=== PATIENT | male | born 1980 | race American Indian/Alaskan Native ===

== ENCOUNTER 2019-09-06 23:44 | Emergency (ER) | payer SELFPAY ==
[2019-09-07] MEDS ORDERED: ASPIRIN 325 MG TAB PO ONE (00:36)
[2019-09-07 01:11] LABS: Hemoglobin 15.2 gm/dl (11.8-15.2); Mean Corpuscular HGB Conc 34 % (32-34); Mean Corpuscular Volume 94 fl (84-94); Platelet Count 187 K/mm3 (140-440); Red Blood Count 4.79 M/mm3 (3.65-5.03); Red Cell Distribution Width 13.1 % (13.2-15.2)
[2019-09-07 01:26] LABS: BUN/Creatinine Ratio 20; Blood Urea Nitrogen 18 mg/dL (9-20); Calcium 9.2 mg/dL (8.4-10.2); Hemolysis Index 32
--- NOTE | 2019-09-07 01:54 | XRay Report ---
CHEST 1 VIEW INDICATION / CLINICAL INFORMATION: Chest Pain. COMPARISON: None available. FINDINGS: SUPPORT DEVICES: None. HEART / MEDIASTINUM: No significant abnormality. LUNGS / PLEURA: No significant pulmonary or pleural abnormality. No pneumothorax. ADDITIONAL FINDINGS: No significant additional findings. IMPRESSION: 1. No acute findings. Signer Name: Clayton Lopez MD Signed: 09/07/2019 1:50 AM Workstation Name: [id number]
[2019-09-07 02:05] LABS: RBC Morphology Normal; Total Cells Counted 100
[2019-09-07] MEDS ORDERED: ACETAMINOPEN W/CODEINE 120-12MG ORAL LIQD 5 ML PO STA (02:13)
[2019-09-07] MEDS ORDERED: IPRATROPIUM/ALBUTEROL SULFATE 3 ML AMPUL.NEB IH ONE (02:13)
[2019-09-07] MEDS ORDERED: predniSONE 50 MG TAB PO STA (02:13)
[2019-09-07] MEDS ORDERED: cloNIDine 0.2 MG TAB PO STA (02:32)
--- NOTE | 2019-09-07 02:47 | Emergency Department Report ---
ED General Adult HPI - General Chief complaint: Chest Pain Stated complaint: CHEST PAIN, BP Time Seen by Provider: 09/07/19 02:00 Source: patient Mode of arrival: Ambulatory Limitations: No Limitations - History of Present Illness Initial comments: 38-year-old male smoker as well as department complaining of a one-week history of episodic left-sided chest pain associated with episodes of shortness of breath and cough with no nausea vomiting, hemoptysis, hematemesis, hematochezia. He also has been having some issues with high blood pressure Radiation: non-radiation Quality: aching, dull Consistency: constant Improves with: none Worsens with: none Associated Symptoms: denies: confusion, chest pain, cough, headaches, malaise, nausea/vomiting, seizure, syncope, weakness - Related Data Previous Rx's Medication Instructions Recorded Last Taken Type ALBUTEROL Inhaler (OR & NICU) 1 puff IH Q4-6H PRN #1 inha 09/07/19 Unknown Rx [ProAir HFA Inhaler] Azithromycin [Zithromax] 500 mg PO QDAY #5 tablet 09/07/19 Unknown Rx amLODIPine 5 mg PO DAILY #20 tab 09/07/19 Unknown Rx guaiFENesin/CODEINE [Robitussin AC] 5 ml PO Q6H PRN #120 ml 09/07/19 Unknown Rx predniSONE [Deltasone] 50 mg PO QDAY #5 tab 09/07/19 Unknown Rx Allergies Allergy/AdvReac Type Severity Reaction Status Date / Time No Known Allergies Allergy Unverified 09/07/19 00:32 ED Review of Systems ROS: Stated complaint: CHEST PAIN, BP Other details as noted in HPI Comment: All other systems reviewed and negative ED Past Medical Hx - Past Medical History Previous Medical History?: No - Surgical History Past Surgical History?: No - Social History Smoking Status: Former Smoker - Medications Home Medications: Home Medications Medication Instructions Recorded Confirmed Last Taken Type ALBUTEROL Inhaler (OR & NICU) 1 puff IH Q4-6H PRN #1 inha 09/07/19 Unknown Rx [ProAir HFA Inhaler] Azithromycin [Zithromax] 500 mg PO QDAY #5 tablet 09/07/19 Unknown Rx amLODIPine 5 mg PO DAILY #20 tab 09/07/19 Unknown Rx guaiFENesin/CODEINE [Robitussin AC] 5 ml PO Q6H PRN #120 ml 09/07/19 Unknown Rx predniSONE [Deltasone] 50 mg PO QDAY #5 tab 09/07/19 Unknown Rx ED Physical Exam - General Limitations: No Limitations General appearance: alert, in no apparent distress - Head Head exam: Present: atraumatic, normocephalic - Eye Eye exam: Present: normal appearance, PERRL, EOMI Pupils: Present: normal accommodation - ENT ENT exam: Present: mucous membranes moist - Neck Neck exam: Present: normal inspection - Respiratory Respiratory exam: Present: normal lung sounds bilaterally, wheezes, rhonchi (to LLL). Absent: respiratory distress - Cardiovascular Cardiovascular Exam: Present: regular rate, normal rhythm. Absent: systolic murmur, diastolic murmur, rubs, gallop - GI/Abdominal GI/Abdominal exam: Present: soft, normal bowel sounds - Rectal Rectal exam: Present: deferred - Extremities Exam Extremities exam: Present: normal inspection - Back Exam Back exam: Present: normal inspection - Neurological Exam Neurological exam: Present: alert, oriented X3 - Psychiatric Psychiatric exam: Present: normal affect, normal mood - Skin Skin exam: Present: warm, dry, intact, normal color. Absent: rash ED Course Vital Signs 09/06/19 09/07/19 09/07/19 23:55 00:56 01:55 Temperature 98.3 F 98.3 F 97.9 F Pulse Rate 93 H 89 92 H Respiratory 18 18 14 Rate Blood Pressure 182/125 182/125 Blood Pressure 169/122 [Left] O2 Sat by Pulse 98 98 99 Oximetry ED Medical Decision Making - Lab Data Result diagrams: 09/07/19 00:59 09/07/19 00:59 - Radiology Data Radiology results: report reviewed (x-rays x-rays show an evolving infiltrate left lower lobe suspicious evolving pneumonia. X-ray was over read by nika and Dr. Celestino Peraza) - Medical Decision Making presents with shortness of breath, cough, and malaise concerning for pneumonia. Workup: CXR Defer lab work at this time given patient well appearing with stable vital signs and without recent hospitalization or care facility stay Given History, Exam, and Workup presentation most consistent with pneumonia.Presentation not consistent with PE, COPD exacerbation, Pneumothorax, TB, Atypical ACS, Esophageal Rupture, Toxic Exposure, Foreign Body Airway Obstruction. Findings: Single Focus Consolidation on CXR Rx: Zithromax Disposition: Discharge home. Return precautions discussed at bedside and patient in agreement with plan. Prompt follow up with primary care provider advised. Critical care attestation.: If time is entered above; I have spent that time in minutes in the direct care of this critically ill patient, excluding procedure time. ED Disposition Clinical Impression: Chest pain, HTN (hypertension), Pneumonia Disposition: TO HOME OR SELFCARE Is pt being admited?: No Does the pt Need Aspirin: No Condition: Stable Instructions: Chest Pain (ED), Hypertension (ED), Bacterial Pneumonia (ED) Additional Instructions: Pneumonia is a lung infection that can cause a fever, cough, and trouble breathing. Please continue all antibiotics as directed until complete. Nutrition is important - eat small frequent meals. Get lots of rest and drink fluids. Call your Primary Care Doctor upon arrival home from the hospital and make a follow-up appointment in two days. If your cough worsens, you develop a fever greater than 101, you develop shaking chills, a fast heartbeat, trouble breathing and/or feel you are are breathing much faster than usual, call your Primary Care Doctor or return to the ED. Make sure you wash your hands frequently. Referrals: [facility] [Provider Group] - 3-5 Days
[2019-09-07] MEDS ORDERED: HYDROcodone/ACETAMINOPHEN 5-325 MG TAB PO ONE (04:07)
[2019-09-07 04:17] VITALS: BP 158/109
== END 2019-09-07 04:17 | disposition home or self-care (01) ==
LOC: ED 23:44
DX: J18.9 Pneumonia, unspecified organism (principal); I10 Essential (primary) hypertension; Z79.899 Other long term (current) drug therapy
CPT/HCPCS: 36415; 71045; 80048; 84484; 85007; 85025; 93005; 93010; 94640; 99284; J7512; 94644

== ENCOUNTER 2020-07-11 19:50 | Emergency (ER) | payer OTHER ==
[2020-07-11 20:19] VITALS: BP 147/96
--- NOTE | 2020-07-11 22:49 | Emergency Department Report ---
ED Upper Extremity Inj HPI - General Chief Complaint: Extremity Injury, Upper Stated Complaint: LEFT RING FINGER PAIN Time Seen by Provider: 07/11/20 22:34 Source: patient Mode of arrival: Ambulatory Limitations: No Limitations - History of Present Illness Initial Comments: 39-year-old male presents to ED with complaint of left hand pain. Patient state s he was working and accidentally hit his hand against the nail. Patient reports mild puncture from the nail in the knuckle of the ring finger. Patient states pain is now radiating down into the left ring finger. States he is able to flex, however extension is painful. Patient reports having a tetanus shot is up-to-date. MD Complaint: Injury to:: left, hand -: This evening Other Injuries: none Place: work Improves With: immobilization Worsens With: movement of extremity Context: direct blow, other Associated Symptoms: denies other symptoms - Related Data Previous Rx's Medication Instructions Recorded Last Taken Type Albuterol Mdi (or & Nicu Only) 1 puff IH Q4-6H PRN #1 inha 09/07/19 Unknown Rx [ProAir HFA Inhaler] Azithromycin [Zithromax] 500 mg PO QDAY #5 tablet 09/07/19 Unknown Rx amLODIPine 5 mg PO DAILY #20 tab 09/07/19 Unknown Rx guaiFENesin/CODEINE [Robitussin AC] 5 ml PO Q6H PRN #120 ml 09/07/19 Unknown Rx predniSONE [Deltasone] 50 mg PO QDAY #5 tab 09/07/19 Unknown Rx HYDROcodone/APAP 5-325 [[place] 1 each PO Q6HR PRN #7 tablet 07/11/20 Unknown Rx 5/325] Naproxen [Naprosyn] 500 mg PO BID #20 tablet 07/11/20 Unknown Rx cephALEXin [Keflex] 500 mg PO Q12HR 7 Days #14 cap 07/11/20 Unknown Rx Allergies Allergy/AdvReac Type Severity Reaction Status Date / Time No Known Allergies Allergy Unverified 09/07/19 00:32 ED Review of Systems ROS: Stated complaint: LEFT RING FINGER PAIN Other details as noted in HPI Comment: All other systems reviewed and negative Musculoskeletal: as per HPI Neurological: denies: numbness, paresthesias ED Past Medical Hx - Past Medical History Previous Medical History?: No - Surgical History Past Surgical History?: No - Social History Smoking Status: Never Smoker Substance Use Type: Alcohol - Medications Home Medications: Home Medications Medication Instructions Recorded Confirmed Last Taken Type Albuterol Mdi (or & Nicu Only) 1 puff IH Q4-6H PRN #1 inha 09/07/19 Unknown Rx [ProAir HFA Inhaler] Azithromycin [Zithromax] 500 mg PO QDAY #5 tablet 09/07/19 Unknown Rx amLODIPine 5 mg PO DAILY #20 tab 09/07/19 Unknown Rx guaiFENesin/CODEINE [Robitussin AC] 5 ml PO Q6H PRN #120 ml 09/07/19 Unknown Rx predniSONE [Deltasone] 50 mg PO QDAY #5 tab 09/07/19 Unknown Rx HYDROcodone/APAP 5-325 [[place] 1 each PO Q6HR PRN #7 tablet 07/11/20 Unknown Rx 5/325] Naproxen [Naprosyn] 500 mg PO BID #20 tablet 07/11/20 Unknown Rx cephALEXin [Keflex] 500 mg PO Q12HR 7 Days #14 cap 07/11/20 Unknown Rx ED Physical Exam - General Limitations: No Limitations General appearance: alert, in no apparent distress - Head Head exam: Present: atraumatic, normocephalic - Eye Eye exam: Present: normal appearance - ENT ENT exam: Present: mucous membranes moist - Neck Neck exam: Present: normal inspection - Respiratory Respiratory exam: Present: normal lung sounds bilaterally. Absent: respiratory distress - Cardiovascular Cardiovascular Exam: Present: regular rate, normal rhythm - GI/Abdominal GI/Abdominal exam: Absent: distended - Extremities Exam Extremities exam: Present: other (tiny puncture wound between left 4th and 5th MCP joint; pain with extension of finger; flexion and extension of finger intact, although extension is somewhat limited secondary to pain; no swelling or erythema present) ED Course Vital Signs 07/11/20 07/11/20 20:16 23:51 Temperature 98.3 F Pulse Rate 72 82 Respiratory 16 16 Rate Blood Pressure 147/96 O2 Sat by Pulse 96 97 Oximetry ED Medical Decision Making - Radiology Data Radiology results: image reviewed - Medical Decision Making Patient presents to ED stating he was working and accidentally hit his hand against the nail. Patient reports mild puncture from the nail in the knuckle of the ring finger. Patient states pain is now radiating down into the left ring finger. States he is able to flex, however extension is painful. X-ray is unremarkable for any acute findings. Possible extensor tendon injury. Will place patient in a finger splint. Will discharge home with antibiotics. Patient advised to follow-up as an outpatient with orthopedic physician. Information provided. Will discharge at this time. Return precautions given. - Differential Diagnosis Fracture, foreign body, tendon injury Critical care attestation.: If time is entered above; I have spent that time in minutes in the direct care of this critically ill patient, excluding procedure time. ED Disposition Clinical Impression: Puncture wound of finger of left hand Disposition: DC- TO HOME OR SELFCARE Is pt being admited?: No Condition: Stable Instructions: Puncture Wound (ED) Additional Instructions: It is possible you may have a tendon injury. Please follow up with the online communications specialist for further evaluation. Take medications as prescribed. Prescriptions: cephALEXin [Keflex] 500 mg PO Q12HR 7 Days #14 cap Naproxen [Naprosyn] 500 mg PO BID #20 tablet HYDROcodone/APAP 5-325 [[place] 5/325] 1 each PO Q6HR PRN #7 tablet PRN Reason: Pain Referrals: SALVATORE AMOR MD [Staff Physician] - 2-3 Days Forms: Work/School Release Form(ED) Time of Disposition: 23:24
[2020-07-11] MEDS ORDERED: IBUPROFEN 800 MG TAB PO ONE (23:16)
[2020-07-11] MEDS ORDERED: HYDROcodone/ACETAMINOPHEN 5-325 MG TAB PO ONE (23:17)
--- NOTE | 2020-07-11 23:26 | XRay Report ---
LEFT HAND 3 VIEWS INDICATION / CLINICAL INFORMATION: nail injury to hand; ring finger pain. COMPARISON: None available. FINDINGS: No fracture or other skeletal abnormality. No radiopaque foreign body. Signer Name: Ovidio Pichardo MD Signed: 07/11/2020 11:21 PM Workstation Name: [id number]
== END 2020-07-11 23:51 | disposition home or self-care (01) ==
LOC: ED 19:50
DX: S61.235A Puncture wound without foreign body of left ring finger without damage to nail, initial encounter (principal); Z79.899 Other long term (current) drug therapy; W22.8XXA Striking against or struck by other objects, initial encounter; Y93.89 Activity, other specified; Y92.89 Other specified places as the place of occurrence of the external cause; Y99.8 Other external cause status
CPT/HCPCS: 99283